=== PATIENT | female | born 1990 | race Caucasian/White ===

== ENCOUNTER 2024-04-24 07:41 | Day surgery (SDC) | payer MEDICAID ==
[~2024-04-24] VITALS: Ht 165.1 cm; Wt 74.8 kg
[2024-04-24 07:53] VITALS: PULSE 71; RESP 20; TEMP 98.3; O2SAT 98
[2024-04-24 08:34] LABS: BASOPHILS # (AUTO) 0.1 K/uL (0.0-0.2); BASOPHILS % (AUTO) 0.7 % (0.0-2.0); EOSINOPHILS # (AUTO) 0.1 K/uL (0.0-0.4); EOSINOPHILS % (AUTO) 1.2 % (0.0-4.0); HEMATOCRIT 36.5 % (36-48); HEMOGLOBIN 12.2 g/dL (12.0-16.0); LYMPHOCYTES # (AUTO) 2.3 K/uL (1.0-5.5); LYMPHOCYTES % (AUTO) 28.1 % (20.5-51.5); MEAN CORPUSCULAR HEMOGLOBIN 30 pg (27-31); MEAN CORPUSCULAR HGB CONC 33 % (32-36); MEAN CORPUSCULAR VOLUME 90 fL (79.0-98.0); MONOCYTES # (AUTO) 0.5 K/uL (0.0-1.0); MONOCYTES % (AUTO) 6.5 % (1.7-9.3); NEUTROPHILS # (AUTO) 5.3 K/uL (1.8-7.7); NEUTROPHILS % (AUTO) 63.5 % (40.0-70.0); PLATELET COUNT (AUTO) 324 K/uL (130-430); RED BLOOD CELL COUNT(AUTO) 4.05 MIL/uL (4.2-6.2); RED CELL DISTRIBUTION WIDTH 14.7 % (9.0-15.0); WHITE BLOOD COUNT (AUTO) 8.4 K/uL (4.8-10.8)
[2024-04-24] MEDS: NACL 0.9% 1,000 ML IV ONE (08:50)
[2024-04-24] MEDS: MORPHINE 2 MG/ML INJ. SYRINGE IVP ONE (08:50)
[2024-04-24 09:11] LABS: ALBUMIN 3.7 g/dL (3.4-4.8); CALCIUM 9.1 mg/dL (8.4-11.0); CREATININE 0.8 mg/dL (0.55-1.30); POTASSIUM 3.8 mmol/L (3.5-5.1); TOTAL BILIRUBIN 0.5 mg/dL (0.0-1.0); TOTAL PROTEIN, SERUM 7.5 g/dL (6.4-8.3)
[2024-04-24 15:30] VITALS: BP_SYST 142; PULSE 71; RESP 20; TEMP 98.3; O2SAT 98
[2024-04-24] MEDS ORDERED: fentaNYL CITRATE/PF 100 MCG/2 ML AMP ONE (15:44)
[2024-04-24] MEDS ORDERED: MIDAZOLAM HCL 2 MG/2 ML VIAL (VERSED) ONE (15:45)
[2024-04-24] MEDS ORDERED: KETAMINE HCL IN 0.9 % NACL 50 MG/5 ML SYRINGE ONE (15:45)
[2024-04-24] MEDS ORDERED: ONDANSETRON HCL 4 MG/2 ML VIAL ONE (15:58)
[2024-04-24] MEDS ORDERED: NS IRRIG SOLN 1000 ML IR ONE (15:58)
[2024-04-24] MEDS ORDERED: ceFAZolin SODIUM 2 GM VIAL ONE (15:58)
[2024-04-24] MEDS ORDERED: SEVOFLURANE 15 MIN GAS INH ONE (15:58)
[2024-04-24] MEDS ORDERED: BUPIVACAINE /PF 0.25% 30 ML VIAL INJ ONE (15:58)
[2024-04-24] MEDS ORDERED: LR 1,000 ML IV.SOLN IV ONE (15:58)
[2024-04-24] MEDS ORDERED: PROPOFOL 200MG/ 20ML VIAL (DIPRIVAN) IV ONE (15:58)
[2024-04-24] MEDS ORDERED: WATER FOR IRRIGATION,STERILE 1,000 ML IRRIG.SOLN IR ONE (15:58)
[2024-04-24] MEDS ORDERED: ACETAMINOPHEN I.V. 1000 MG 100 ML IV ONE (16:33)
[2024-04-24] MEDS ORDERED: HYDROmorphone 1 MG/ML INJ. CARTRIDGE IVP PRN ×2 (16:45)
[2024-04-24] MEDS ORDERED: NALOXONE HCL 0.4 MG/ML AMP (NARCAN) IVP PRN (16:45)
[2024-04-24] MEDS ORDERED: hydrALAZINE HCL 20 MG/ML VIAL IV PRN (16:45)
[2024-04-24] MEDS ORDERED: ONDANSETRON HCL 4 MG/2 ML VIAL IVP PRN (16:45)
[2024-04-24] MEDS ORDERED: HYDROmorphone 1 MG/ML INJ. CARTRIDGE ONE (17:39)
[2024-04-24] MEDS: HYDROmorphone 1 MG/ML INJ. CARTRIDGE IVP PRN (18:25)
== END 2024-04-25 20:15 | disposition home or self-care (01) ==
LOC: SED 07:41 → SDS 07:41 → SED 15:30 → SMU 15:32 → SDS 15:33 → SMU 15:33 → SED 20:20 → SDS 04-25 20:15
PROVIDERS: ATTEND Student in an Organized Health Care Education/Training Program
DX: S52.572A Other intraarticular fracture of lower end of left radius, initial encounter for closed fracture (principal); Z90.49 Acquired absence of other specified parts of digestive tract; Z88.1 Allergy status to other antibiotic agents; W19.XXXA Unspecified fall, initial encounter; Y93.89 Activity, other specified; Y92.89 Other specified places as the place of occurrence of the external cause; Y99.8 Other external cause status
CPT/HCPCS: 36415; 71045; 76000; 80053; 85025; 86886; 86900; 86901; 93005; 96361; 96374; 96375; 99285; C1713; C1769; J0131; J1171; J2250; J2270; J2405; J2704; J3010; J3490; J7120